=== PATIENT | female | born 2000 | race Caucasian/White ===

== ENCOUNTER 2025-07-02 09:42 | Emergency (ER) | payer OTHER ==
[~2025-07-02] VITALS: Ht 157.5 cm; Wt 69.1 kg
[2025-07-02] MEDS: ACETAMINOPHEN 500 MG TAB PO ONE (12:18)
[2025-07-02] MEDS: ONDANSETRON 4MG/2ML VIAL IV ONE (12:18)
[2025-07-02] MEDS: KETOROLAC 30 MG/ML 1 ML VIAL IV ONE (12:18)
[2025-07-02] MEDS: NS (Normal Saline) 0.9% 1,000 ML IV ONE (12:19)
[2025-07-02 14:12] VITALS: BP 115/68; TEMP 97.2; O2SAT 98
== END 2025-07-02 14:15 | disposition home or self-care (01) ==
LOC: M ED 09:42
DX: G43.909 Migraine, unspecified, not intractable, without status migrainosus (principal)
CPT/HCPCS: 70450; 96361; 96374; 99284; J1885; J2405

== ENCOUNTER 2025-07-27 05:45 | Emergency (ER) | payer OTHER ==
[~2025-07-27] VITALS: Ht 157.5 cm; Wt 67.9 kg
[2025-07-27 05:48] VITALS: TEMP 99.6
[2025-07-27 07:47] LABS: BASO # 0.0 10^3/uL (0.0-0.2); BASO % 0.3 % (0.0-1.0); EOS # 0.1 10^3/uL (0.0-0.5); EOS % 0.7 % (0.0-3.0); LYMPH # 2.9 10^3/uL (1.5-5.0); LYMPH % 30.3 % (24.0-44.0); MONO # 0.8 10^3/uL (0.0-0.8); MONO % 8.8 % (2.0-8.0); NEUTROPHILS # 5.7 10^3/uL (1.5-8.5); NEUTROPHILS % 59.6 % (36.0-66.0); PLATELET COUNT, AUTOMATED 339 10^3/uL (150-450)
[2025-07-27] MEDS ORDERED: ISOVUE-370 76% 100 ML VIAL As Ordered ONE (07:47)
[2025-07-27 07:58] LABS: HCG, SERUM QUALITATIVE NEGATIVE (NEGATIVE)
[2025-07-27] MEDS: KETOROLAC 30 MG/ML 1 ML VIAL IV ONE (08:05)
[2025-07-27 09:48] LABS: C REACTIVE PROTEIN QUANTITATIV 2.79 MG/DL (<1.0)
[2025-07-27 09:51] LABS: FREE T4 1.06 NG/DL (0.89-1.76)
[2025-07-27 09:53] LABS: THYROGLOBULIN ANTIBODY 22.0 U/ML (<60.0)
[2025-07-27 09:54] LABS: THYROID PEROXIDASE ANTIBODY < 28.0 U/ML (<60.0)
[2025-07-27 10:15] VITALS: BP 110/61; O2SAT 99
[2025-07-27] MEDS ORDERED: HOME MED LIST COMPLETE! XX SCH (10:20)
== END 2025-07-27 10:22 | disposition home or self-care (01) ==
LOC: M ED 05:45
DX: E04.1 Nontoxic single thyroid nodule (principal); M54.2 Cervicalgia; F17.290 Nicotine dependence, other tobacco product, uncomplicated; F10.10 Alcohol abuse, uncomplicated
CPT/HCPCS: 70491; 80047; 84439; 84443; 84481; 84703; 85025; 85652; 86140; 86376; 86800; 96374; 99284; J1885; Q9967

== ENCOUNTER → 2025-08-03 | Outpatient (CLI) | payer OTHER ==
[~2025-08-03] MED LIST: LIDOCAINE 1% MDV 20 ML VIAL SC SCH
[2025-08-03 11:55] VITALS: BP 113/62; TEMP 98.3; O2SAT 100
== END ==
LOC: M IRPRO 11:43
PROVIDERS: ATTEND Otolaryngology
DX: E04.1 Nontoxic single thyroid nodule (principal)

== ENCOUNTER 2025-08-30 09:51 | Observation (INO) | payer OTHER ==
[~2025-08-30] VITALS: Ht 157.5 cm; Wt 66.7 kg
[2025-08-30] MEDS ORDERED: ACETAMINOPHEN 1000MG/100ML IV BAG As Ordered ONE (10:49)
[2025-08-30] MEDS ORDERED: dexAMETHasone 4 MG/ML 1 ML VIAL As Ordered ONE (10:50)
[2025-08-30] MEDS ORDERED: MIDAZOLAM INJ 2 MG/2 ML VIAL As Ordered ONE (10:50)
[2025-08-30] MEDS ORDERED: ONDANSETRON 4MG/2ML VIAL As Ordered ONE (10:50)
[2025-08-30] MEDS ORDERED: SUCCINYLCHOLINE 100MG/5ML SYRINGE As Ordered ONE (10:50)
[2025-08-30] MEDS: LR 1,000 ML IV SCH ×2 (10:50→15:30)
[2025-08-30] MEDS ORDERED: LIDOCAINE 2% 100 MG/5 ML SDV (FOR ANES.) As Ordered ONE (10:50)
[2025-08-30] MEDS ORDERED: REMIFENTANIL 1MG VIAL As Ordered ONE (12:45)
[2025-08-30] MEDS: LIDOCAINE W/EPINEPHrine 1% 20 ML VIAL As Ordered ONE (13:19)
[2025-08-30] MEDS ORDERED: GLYCOPYRROLATE INJ 0.2 MG/ML 2 ML VIAL As Ordered ONE (13:32)
[2025-08-30] MEDS ORDERED: ONDANSETRON 4MG/2ML VIAL IV PRN (15:30)
[2025-08-30] MEDS ORDERED: MEPERIDINE 25 MG/ML 1 ML VIAL IV PRN (15:30)
[2025-08-30] MEDS ORDERED: HYDROMORPHONE HCL 0.5 MG/0.5 ML SYRINGE IV PRN (15:30)
[2025-08-30] MEDS ORDERED: HYDROmorphone HCL 2 MG/ML 1 ML VIAL As Ordered ONE (15:36)
[2025-08-30] MEDS: HYDROMORPHONE HCL 0.5 MG/0.5 ML SYRINGE IV PRN ×2 (18:54→22:06)
[2025-08-30] MEDS: PERCOCET 5MG/325MG TAB PO PRN (21:07)
[2025-08-30] MEDS: NICOTINE 21 MG/24 HR 1 EA TRANSDERMAL TD SCH (21:11)
[2025-08-30] MEDS: ONDANSETRON 4MG/2ML VIAL IV SCH (21:11)
[2025-08-30 21:36] VITALS: BP 106/60; TEMP 98.3; O2SAT 98
[2025-08-31 06:22] VITALS: BP 106/56; TEMP 97.9; O2SAT 100
[2025-08-31] MEDS ORDERED: PERCOCET PO (11:48)
[2025-08-31] MEDS ORDERED: DOCU100C16 PO (11:48)
[2025-08-31] MEDS ORDERED: BACIOIN5 OP (11:48)
== END 2025-08-31 12:20 | disposition home or self-care (01) ==
LOC: M SDC 09:51 → M RR INP 09:52 → M MS5PR 19:45
PROVIDERS: ADMIT Internal Medicine; ATTEND Student in an Organized Health Care Education/Training Program
DX: E04.1 Nontoxic single thyroid nodule (principal); M54.2 Cervicalgia; R13.10 Dysphagia, unspecified; F17.290 Nicotine dependence, other tobacco product, uncomplicated
CPT/HCPCS: 60220; 81025; 88307; 96374; 96375; 96376; J0131; J0330; J1100; J1171; J1596; J2250; J2405; J3010